=== PATIENT | female | born 1955 | race Caucasian/White ===

== ENCOUNTER 2021-05-19 07:29 | Day surgery (SDC) | payer MEDICARE, OTHER ==
[~2021-05-19] VITALS: Ht 160 cm; Wt 48.0 kg
[2021-05-19 08:11] VITALS: BP 144/70
== END 2021-05-19 10:55 | disposition home or self-care (01) ==
LOC: RAD 07:29
PROVIDERS: ATTEND Pathology Hematology
DX: C90.00 Multiple myeloma not having achieved remission (principal); Z79.82 Long term (current) use of aspirin; Z79.899 Other long term (current) drug therapy
CPT/HCPCS: 36415; 38221; 77012; 85025; 85060; 88305; 88311; 88341; 88342; 99156; 99157; J2250; J3010